=== PATIENT | female | born 1955 | race Caucasian/White ===

== ENCOUNTER 2019-12-18 21:47 | Emergency (ER) | payer MEDICARE, BC ==
[~2019-12-18] VITALS: Ht 165.1 cm; Wt 86.2 kg
--- NOTE | 2019-12-18 23:05 | NUR ---
Dr. Crowley at bedside for MSE.
--- NOTE | 2019-12-18 23:39 | NUR ---
Called [employer] for female chapperone.
[2019-12-18 23:40] LABS: BASOPHILS # (AUTO) 0.1 K/uL (0.0-8.0); BASOPHILS % (AUTO) 0.9 % (0.0-2.0); EOSINOPHILS # (AUTO) 0.1 K/uL (0.0-0.7); EOSINOPHILS % (AUTO) 1.1 % (0.0-7.0); HEMATOCRIT 41.4 % (31.2-41.9); HEMOGLOBIN 13.7 g/dL (10.9-14.3); LYMPHOCYTES % (AUTO) 10.4 % (20.5-51.5); MEAN CORPUSCULAR HEMOGLOBIN 29.1 uug (24.7-32.8); MEAN CORPUSCULAR HGB CONC 33 g/dL (32.3-35.6); MEAN CORPUSCULAR VOLUME 87.7 fL (75.5-95.3); MONOCYTES # (AUTO) 0.5 K/uL (2.0-10.0); MONOCYTES % (AUTO) 5.6 % (0.0-11.0); NEUTROPHILS # (AUTO) 7.7 K/uL (1.8-8.9); PLATELET COUNT (AUTO) 200 K/uL (179-408); RED BLOOD CELL COUNT(AUTO) 4.73 MIL/uL (3.63-4.92); WHITE BLOOD COUNT (AUTO) 9.4 K/uL (3.8-11.8)
--- NOTE | 2019-12-18 23:42 | NUR ---
Dr. Crowley collecting occult blood stool, chapperoned by [employer] Operator Deonna RITTER.
[2019-12-18 23:56] LABS: BILIRUBIN,DIRECT 0.1 mg/dL (0.0-0.2); BILIRUBIN,TOTAL 0.4 mg/dL (0.2-1.0); CREATININE 1.1 mg/dL (0.6-1.3)
[2019-12-19 00:05] LABS: *OCCULT BLOOD STOOL NEGATIVE (NEGATIVE)
[2019-12-19] MEDS ORDERED: ONDANSETRON 4 MG/2 ML VIAL ONE (00:07)
[2019-12-19] MEDS ORDERED: ONDANSETRON 4 MG/2 ML VIAL IV ONE (00:30)
[2019-12-19] MEDS ORDERED: FAMOTIDINE 20 MG TABLET ONE (00:43)
[2019-12-19] MEDS ORDERED: FAMOTIDINE 20 MG TABLET PO ONE (00:45)
--- NOTE | 2019-12-19 01:38 | NUR ---
Patient discharged to home in stable condition. Written and verbal after care instructions given. Patient verbalizes understanding of instructions. Stressed follow up or return to ER for worsening s/s. Patient ambulated out of ER with steady gait, no acute signs of distress, VSS, all belongings taken, IV site discontinued.
[2019-12-19 01:39] VITALS: BP 135/85
== END 2019-12-19 01:39 | disposition home or self-care (01) ==
LOC: ER 21:47
DX: K62.5 Hemorrhage of anus and rectum (principal); R10.9 Unspecified abdominal pain; Z85.828 Personal history of other malignant neoplasm of skin
CPT/HCPCS: 36415; 80048; 80076; 82270; 83690; 85025; 85730; 86850; 86900; 86901; 96374; 99284; J2405; A4663